=== PATIENT | male | born 1960 | race Caucasian/White ===

== ENCOUNTER 2017-03-14 09:23 | Emergency (ER) | payer MEDICAID ==
[~2017-03-14] VITALS: Ht 177.8 cm; Wt 85.0 kg
[~2017-03-14 09:23] MED LIST: CALCIUM CHLORIDE 100 MG/ML 10 ML SYRINGE IVP ONE; EPHEDrine SULFATE 50 MG/ML VIAL IM ONE; EPINEPHrine 1:1,000 [1 MG/ML] AMP IM ONE; FentaNYL CITRATE-PF 100 MCG/2 ML VIAL IVP ONE; LIDOCAINE HCL/PF 2% 5 ML VIAL IM ONE; MIDAZOLAM HCL 2 MG/2 ML VIAL IVP ONE; PHENYLEPHRINE HCL 10 MG/ML VIAL IVP ONE; SUCCINYLCHOLINE CHLORIDE 20 MG/ML 10 ML VIAL IVP ONE
[2017-03-14] MEDS ORDERED: PANTOPRAZOLE SODIUM 80 MG in SODIUM CHLORIDE 0.9% 100 ML IV SCH (09:30)
[2017-03-14] MEDS ORDERED: PANTOPRAZOLE SODIUM 80 MG in SODIUM CHLORIDE 0.9% 50 ML IV ONE (09:30)
[2017-03-14] MEDS ORDERED: RIFAX550 PO (09:32)
[2017-03-14] MEDS ORDERED: SPIR50 PO (09:32)
[2017-03-14] MEDS ORDERED: FURO40 PO (09:32)
[2017-03-14] MEDS ORDERED: OMEP20 PO (09:32)
[2017-03-14] MEDS ORDERED: [UNRECOGNIZED DRUG - OTHER] PO (09:36)
[2017-03-14 09:37] LABS: GLUCOSE,POINT OF CARE 104 MG/DL (70-110)
[2017-03-14 10:02] LABS: EOSINOPHILS % (AUTO) 0 % (1.0-6.0); HEMATOCRIT 26.8 % (41-53); HEMOGLOBIN 8.8 g/dL (13.5-17.5); LYMPHOCYTES # (AUTO) 0.4 K/uL (1.0-4.8); LYMPHOCYTES % (AUTO) 4.4 % (22.0-44.0); MEAN CORPUSCULAR HEMOGLOBIN 33.7 pg (26.0-34.0); MEAN CORPUSCULAR HGB CONC 32.6 G/dL (31.0-37.0); MEAN CORPUSCULAR VOLUME 103 fL (80-100); MONOCYTES # (AUTO) 0.5 K/uL (0.1-1.0); MONOCYTES % (AUTO) 6.3 % (2.0-9.0); NEUTROPHILS # (AUTO) 7.6 K/uL (1.8-7.7); PLATELET COUNT (AUTO) 79 K/uL (150-450); RED CELL DISTRIBUTION WIDTH 16.5 % (11.5-14.5); WHITE BLOOD COUNT (AUTO) 8.5 K/uL (4.5-11.0)
[2017-03-14 10:14] LABS: NEUTROPHILS % (AUTO) 89.3 % (40.0-70.0)
[2017-03-14 10:24] LABS: TROPONIN I 0.05 ng/mL (0.00-0.05)
[2017-03-14] MEDS ORDERED: OCTREOTIDE ACETATE 100 MCG/ML VIAL IVP ONE (10:30)
[2017-03-14] MEDS ORDERED: SODIUM CHLORIDE 0.9% 250 ML IV ONE (10:30)
[2017-03-14 10:36] LABS: B-TYPE NATRIURETIC PEPTIDE 7 pg/mL (0-100)
[2017-03-14 10:42] LABS: INR 2.1 (0.9-1.1); PROTHROMBIN TIME 22.7 SEC (9.4-11.6)
[2017-03-14 10:43] LABS: ANION GAP 10 mmol/L (8-16); CALCIUM, TOTAL 7.4 mg/dL (8.8-10.5); CARBON DIOXIDE 21 mmol/L (22-29); CHLORIDE 98 mmol/L (98-107); CREATININE 1.43 mg/dL (0.60-1.30); GLOMERULAR FILTR. RATE CALC 51 mL/min (>60); POTASSIUM 4.9 mmol/L (3.5-5.1); SODIUM SERUM 129 mmol/L (136-145); UREA NITROGEN, BLOOD 21 mg/dL (7-18)
[2017-03-14 11:07] LABS: ALANINE AMINOTRANSFERASE 44 U/L (12-78); ALBUMIN 2.1 g/dL (3.4-5.0); ASPARTATE AMINOTRANSFERASE 70 U/L (15-37); BILIRUBIN,TOTAL 5.9 mg/dL (0.1-1.0); CREATINE KINASE, TOTAL 116 U/L (39-308); TOTAL PROTEIN, SERUM 4.3 g/dL (6.4-8.2)
[2017-03-14] MEDS ORDERED: ONDANSETRON HCL 4 MG/2 ML VIAL IVP ONE (11:30)
[2017-03-14] MEDS ORDERED: OCTREOTIDE ACETATE 500 MCG in DEXTROSE 5%-WATER 97.5 ML IV SCH (11:30)
[2017-03-14 12:05] VITALS: BP 57/35
[2017-03-14 12:21] VITALS: BP 48/30
[2017-03-14 12:51] VITALS: BP 63/44
[2017-03-14] MEDS ORDERED: SODIUM CHLORIDE 0.9% 500 ML IV ONE (12:53)
[2017-03-14] MEDS ORDERED: LIDOCAINE HCL/PF 1% 2 ML VIAL ONE (12:54)
[2017-03-14] MEDS ORDERED: CefTRIAXone 1 GM/DEXTROSE 50 ML IV ONE (13:15)
[2017-03-14 13:21] VITALS: BP 68/52
[2017-03-14 13:36] VITALS: BP 86/46
[2017-03-14] MEDS ORDERED: METOCLOPRAMIDE HCL 5 MG/ML 2 ML VIAL IVP ONE (13:45)
[2017-03-14 13:51] LABS: HEMATOCRIT 29.8 % (41-53)
[2017-03-14 14:39] LABS: ABG BASE EXCESS 4.3 mmol/L (-2.0-3.0); ABG HCO3 27.2 mmol/L (22.0-26.0); ABG PH 7.218 (7.35-7.450); TEMPERATURE, FAHRENHEIT, BG 96.5 FAHREN (96.0-98.6)
[2017-03-14 14:44] LABS: ABG PCO2 80 mmHg (35-45); ALLEN TEST, BLOOD GAS Positive
[2017-03-14 15:08] LABS: ABG A-A DIFF O2 584.9 mmHg (10-20.0); ABG BASE EXCESS -17.7 mmol/L (-2.0-3.0); ABG HCO3 10.8 mmol/L (22.0-26.0); ABG OXYHEMOGLOBIN 69.2 % (94.0-100.0); TEMPERATURE, FAHRENHEIT, BG 96.5 FAHREN (96.0-98.6)
[2017-03-14 15:11] LABS: ABG PCO2 82 mmHg (35-45); ABG PH 6.889 (7.35-7.450)
[2017-03-14 15:12] LABS: ALLEN TEST, BLOOD GAS Positive
[2017-03-14] MEDS ORDERED: SODIUM CHLORIDE 0.9% 1,000 ML IV ONE (15:13)
[2017-03-14] MEDS ORDERED: SODIUM BICARBONATE [ADULT] 8.4% 50 MEQ/50 ML SYRINGE IVP ONE ×2 (15:16→17:14)
[2017-03-14] MEDS ORDERED: NOREPINEPHRINE 4 MG/D5%-WATER 250 ML IV PRN (15:43)
[2017-03-14] MEDS ORDERED: SODIUM BICARBONATE 150 MEQ in DEXTROSE 5%-WATER 1,000 ML IV ONE (15:45)
[2017-03-14] MEDS ORDERED: NOREPINEPHRINE 4 MG/D5%-WATER 250 ML IV ONE (15:45)
[2017-03-14] MEDS ORDERED: SODIUM TETRADECYL SULFATE 3% 60 MG/2 ML VIAL IVP ONE (15:51)
[2017-03-14] MEDS ORDERED: EPINEPHrine 1:10,000 [1 MG/10 ML] SYRINGE IVP ONE (17:14)
[2017-03-14] MEDS ORDERED: DOPamine HCL/D5W 400 MG/250 ML IV BAG IV ONE (17:14)
[2017-03-14] MEDS ORDERED: CALCIUM CHLORIDE 100 MG/ML 10 ML SYRINGE IVP ONE (17:14)
[2017-03-14] MEDS ORDERED: ATROPINE SULFATE 0.1 MG/ML 10 ML SYRINGE IVP ONE (17:14)
== END 2017-03-14 19:56 | disposition expired ==
LOC: EMS 09:24
DX: I46.9 Cardiac arrest, cause unspecified (principal); J96.00 Acute respiratory failure, unspecified whether with hypoxia or hypercapnia; D68.9 Coagulation defect, unspecified; K92.0 Hematemesis; K74.60 Unspecified cirrhosis of liver; D64.9 Anemia, unspecified; I95.9 Hypotension, unspecified; E87.4 Mixed disorder of acid-base balance; I85.01 Esophageal varices with bleeding; N17.9 Acute kidney failure, unspecified; K21.9 Gastro-esophageal reflux disease without esophagitis
CPT/HCPCS: 36415; 36430; 36556; 43243; 43244; 71010; 80053; 82140; 82550; 82553; 82805; 82962; 83690; 83880; 84484; 85014; 85018; 85025; 85610; 85730; 86850; 86900; 86901; 86920; 86927; 92950; 93005; 96365; 96366; 96368; 96374; 96375; 99291; C9113; G0480; J0171 ×2; J0330; J2250; J2354 ×2; J2370; J2405; J3010; J3490 ×7; J7030; J7040; J7050 ×2; J7060 ×2; P9016; P9017; Z7610 ×2; 94002; J0461; J0696; J1265; J2765